=== PATIENT | male | born 1990 | race Caucasian/White ===

== ENCOUNTER 2017-01-07 19:05 | Emergency (ER) | payer BC ==
[~2017-01-07] VITALS: Ht 185.4 cm; Wt 89.3 kg
[~2017-01-07 19:05] MED LIST: ALBUAER19 INH
[2017-01-07 19:09] VITALS: Ht 185.4 cm; Wt 89.3 kg
--- NOTE | 2017-01-07 20:22 | DIAGNOSTIC IMAGING REPORT ---
SINGLE VIEW CHEST CLINICAL HISTORY: Atypical chest pain. FINDINGS: 2 AP, portable, upright chest radiographs are obtained. No prior studies are available for comparison at the time of dictation. The examination is degraded by portable technique and patient rotation. The cardiomediastinal silhouette is unremarkable. The lungs and pleural spaces are clear. No pneumothorax is seen. The bony thorax is grossly intact. IMPRESSION: No active disease in the chest. Electronically signed by: Jayden Banda M.D. 01/07/2017 8:20 PM Dictated Date/Time: 01/07/2017 8:20 PM
[2017-01-07] MEDS ORDERED: ATOR10TA88 PO (20:24)
[2017-01-07] MEDS ORDERED: LISI-729 PO (20:24)
[2017-01-07] MEDS ORDERED: ASPI81TA28 PO (20:25)
[2017-01-07 20:32] VITALS: O2SAT 99
--- NOTE | 2017-01-07 20:34 | EMERGENCY ROOM VISIT NOTE ---
History Report prepared by Carrie: Quin Ibarra Under the Supervision of: Dr. Gary Carbone M.D. First contact with patient: 19:56 Chief Complaint: CARDIAC ASSESSMENT Stated Complaint: FLUTTERING/FULLFEELING/PRESSUE IN CHEST,HEADACHE Nursing Triage Summary: Patient ambulatory to triage, states "I have been having a fluttering feeling in my chest. I was also having high blood pressure. I went to my PCP for it but it has gotten progressively worse. I was put on Lisinopril for the HTN and they discovered I have high cholesterol. I was put on atorvastatin about 5 days ago. I am supposed to see a key account director but they never contacted me. I called them tonight, telling them my symptoms, and they told me to come here. I have a pressure in the center of my chest. I now have a headache." History of Present Illness The patient is a 26 year old male who presents to the Emergency Room with complaints of worsening chest pain with onset today. He rates his discomfort as a 7/10. Per patient, five days ago, he started to have chest pain and a feeling of fullness in his chest. The patient's blood pressure was also elevated. As the patient's father first had a heart attack at 32, the patient became concerned about a cardiac source. For this, he saw his PCP. At his PCP, some lab work was done. The patient's cholesterol was high. He has been taking a statin and lisinopril for five days since seeing his PCP. Today, the patient has fluttering sensation in his chest, which has not gone away throughout the day. The patient tried calling the key account director his PCP referred him to. As they did not have his paperwork, he was then told to come to the ED. The patient still feels the palpitations. The patient notes that he smokes. He denies other drugs. The patient is trying to reduce his caffeine intake. Today, he had one cup of coffee. Additionally, the patient's father due to a heart attack at 72; he had an extensive cardiac history. The patient's great grandfather also had a heart attack in his 40s. Source of History: patient Onset: today Position: chest Symptom Intensity: 7/10 Quality: other (chest pain) Timing: worsening Note: His blood pressure has been elevated. Review of Systems See HPI for pertinent positives & negatives. A total of 10 systems reviewed and were otherwise negative. Past Medical & Surgical Medical Problems: (1) Laceration Family History Diabetes mellitus Heart disease Hypertension Social History Smoking Status: Current Every Day Smoker Alcohol Use: occasionally Marital Status: in relationship Occupation Status: employed Current/Historical Medications Scheduled Aspirin (Aspirin Ec), 81 MG PO DAILY Atorvastatin (Lipitor), 10 MG PO DAILY Lisinopril (Zestril), 5 MG PO DAILY Allergies Coded Allergies: No Known Allergies (Unverified , 03/11/12) Physical Exam Vital Signs Date Time Temp Pulse Resp B/P Pulse Ox O2 Delivery O2 Flow Rate FiO2 01/07/17 22:48 36.8 73 16 143/83 98 01/07/17 22:48 36.8 73 16 143/83 98 Room Air 01/07/17 20:39 73 01/07/17 20:36 75 16 143/83 98 Room Air 01/07/17 20:32 99 Room Air 01/07/17 20:32 99 Room Air 01/07/17 19:09 36.8 90 16 143/93 99 Room Air 01/07/17 19:09 99 Room Air Physical Exam GENERAL: Patient is a healthy-appearing well-nourished HEAD: Normocephalic atraumatic EYES: Ocular movements intact pupils equal and react to light OROPHARYNX mucous membranes are moist no exudates present no erythema or edema present NECK: Supple no nuchal rigidity CHEST: Good equal expansion LUNGS: Clear and equal to auscultation CARDIAC: Normal S1 and S2 ABDOMEN: Soft nontender no guarding BACK: No CVA tenderness EXTREMITIES: No pain upon palpation normal muscle strength in all groups no clubbing cyanosis or edema NEURO: Patient is following commands is answering questions appropriately. Alert and oriented x3 Cranial Nerves 2-12 grossly intact Medical Decision & Procedures ER Provider Diagnostic Interpretation: X-ray results as stated below per interpretation by me and the radiologist: SINGLE VIEW CHEST CLINICAL HISTORY: Atypical chest pain. FINDINGS: 2 AP, portable, upright chest radiographs are obtained. No prior studies are available for comparison at the time of dictation. The examination is degraded by portable technique and patient rotation. The cardiomediastinal silhouette is unremarkable. The lungs and pleural spaces are clear. No pneumothorax is seen. The bony thorax is grossly intact. IMPRESSION: No active disease in the chest. Electronically signed by: Jayden Vilbert, M.D. 01/07/2017 8:20 PM Dictated Date/Time: 01/07/2017 8:20 PM Laboratory Results 01/07/17 21:11 Red Blood Count 4.88, Mean Corpuscular Volume 90.8, Mean Corpuscular Hemoglobin 31.8, Mean Corpuscular Hemoglobin Concent 35.0, Mean Platelet Volume 9.3, Neutrophils (%) (Auto) 52.5, Lymphocytes (%) (Auto) 34.8, Monocytes (%) (Auto) 10.2, Eosinophils (%) (Auto) 2.1, Basophils (%) (Auto) 0.1, Neutrophils # (Auto ) 5.22, Lymphocytes # (Auto) 3.46, Monocytes # (Auto) 1.01, Eosinophils # (Auto ) 0.21, Basophils # (Auto) 0.01 01/07/17 21:11 Test 01/07/17 20:31 01/07/17 20:35 01/07/17 21:11 Bedside Hemoglobin 16.3 g/dl (14.0-18.0) Bedside Hematocrit 48 % (42-52) Bedside Sodium 137 mEq/L (135-144) Bedside Potassium 5.1 mEq/L (3.3-5.0) Bedside Chloride 104 mEq/L (101-112) Bedside Total CO2 24 mEq/l (24-31) Bedside Blood Urea Nitrogen 12 mg/dl (7-18) Bedside Creatinine 0.7 mg/dl (0.6-1.3) Bedside Glucose (other) 82 mg/dl (70-99) Bedside Ionized Calcium (Janice) 0.97 mmol/l (1.12-1.32) Bedside D-Dimer 88 ng/mlFEU (0-450) White Blood Count 9.94 K/uL (4.8-10.8) Red Blood Count 4.88 M/uL (4.7-6.1) Hemoglobin 15.5 g/dL (14.0-18.0) Hematocrit 44.3 % (42-52) Mean Corpuscular Volume 90.8 fL (80-100) Mean Corpuscular Hemoglobin 31.8 pg (25-34) Mean Corpuscular Hemoglobin Concent 35.0 g/dl (32-36) Platelet Count 286 K/uL (130-400) Mean Platelet Volume 9.3 fL (7.4-10.4) Neutrophils (%) (Auto) 52.5 % Lymphocytes (%) (Auto) 34.8 % Monocytes (%) (Auto) 10.2 % Eosinophils (%) (Auto) 2.1 % Basophils (%) (Auto) 0.1 % Neutrophils # (Auto) 5.22 K/uL (1.4-6.5) Lymphocytes # (Auto) 3.46 K/uL (1.2-3.4) Monocytes # (Auto) 1.01 K/uL (0.11-0.59) Eosinophils # (Auto) 0.21 K/uL (0-0.5) Basophils # (Auto) 0.01 K/uL (0-0.2) RDW Standard Deviation 42.9 fL (36.4-46.3) RDW Coefficient of Variation 12.9 % (11.5-14.5) Immature Granulocyte % (Auto) 0.3 % Immature Granulocyte # (Auto) 0.03 K/uL (0.00-0.02) Anion Gap 10.0 mmol/L (3-11) Est Creatinine Clear Calc Drug Dose 172.6 ml/min Estimated GFR () 147.1 Estimated GFR (Non- 126.9 BUN/Creatinine Ratio 13.6 (10-20) Calcium Level 8.8 mg/dl (8.5-10.1) Total Bilirubin 0.4 mg/dl (0.2-1) Direct Bilirubin < 0.1 mg/dl (0-0.2) Aspartate Amino Transf (AST/SGOT) 20 U/L (15-37) Alanine Aminotransferase (ALT/SGPT) 45 U/L (12-78) Alkaline Phosphatase 56 U/L (45-117) Total Creatine Kinase 94 U/L (39-308) Creatine Kinase MB 0.7 ng/ml (0.5-3.6) Creatine Kinase MB Ratio 0.7 (0-3.0) Troponin I < 0.015 ng/ml (0-0.045) Total Protein 7.1 gm/dl (6.4-8.2) Albumin 4.0 gm/dl (3.4-5.0) Lipase 154 U/L (73-393) Labs reviewed by ED physician. Medications Administered Medications (Trade) Dose Ordered Sig/Jared Route Start Time Stop Time Status Last Admin Dose Admin Sodium Chloride (Nss 1000ml) 1,000 ml @ 999 mls/hr Q1H1M STAT IV 01/07/17 20:39 01/07/17 21:39 DC 01/07/17 21:03 999 MLS/HR Acetaminophen (Tylenol Tab) 1,000 mg NOW STAT PO 01/07/17 21:32 01/07/17 21:33 DC 01/07/17 22:48 1,000 MG ECG Indication: chest pain Rate (beats per minute): 72 Rhythm: normal sinus Findings: no acute ischemic change, no ectopy ED Course 2001: Past medical records reviewed. The patient was evaluated in room C9. A complete history and physical examination was performed. 2035: I reevaluated the patient and updated him on the results of his imaging. 2038: Sodium Chloride 1000 ml @ 999 mls/hr IV 2131: Tylenol Tab 1000 mg PO 2248: Upon reexamination the patient is doing well. I discussed results and treatment plan with the patient. He verbalizes agreement and understanding. The patient is ready for discharge. Medical Decision The patient is a 26 year old male who presents to the ED with complaints of chest pain. Differential diagnosis: Etiologies such as cardiac ischemia, aortic dissection, pulmonary embolism, pneumonia, pneumothorax, musculoskeletal, infections, pericarditis, myocarditis , esophageal rupture, gastrointestinal, as well as others were entertained. This is a 26-year-old male who presents emergency department complaining of palpitations. On examination of the patient's monitor strip, he is throwing PVCs. He is not having any chest pain or shortness of breath. He has normal joints normal CK-MB and troponin normal EKG. The patient was given normal saline bolus. I do believe he as well as to be discharged home for follow-up with cardiology. The patient is going to follow-up with Dr. Isac sierra and Maddy. Patient was in agreement with the treatment plan. Impression Primary Impression: Palpitations Additional Impression: PVC (premature ventricular contraction) Scribe Attestation The scribe's documentation has been prepared under my direction and personally reviewed by me in its entirety. I confirm that the note above accurately reflects all work, treatment, procedures, and medical decision making performed by me. Departure Information Dispostion Home / Self-Care Referrals Rafael Quinteros D.O. (PCP) Forms IMPORTANT VISIT INFORMATION Patient Instructions ED Palpitations, My [facility], Premature Ventricular Contractions Additional Instructions Follow up with Dr Capone/ Federico's office You have been examined and treated today on an emergency basis only. This is not a substitute for, or an effort to provide, complete comprehensive medical care. It is impossible to recognize and treat all injuries or illnesses in a single emergency department visit. It is therefore important that you follow up closely with Dr Quinteros. Call as soon as possible for an appointment. Thank you for your time and consideration. I look forward to speaking with you again soon. Please don't hesitate to call us if you have any questions. Problem Qualifiers
[2017-01-07] MEDS ORDERED: SODIUM CHLORIDE 0.9% 1000ML 1,000 ML IV STA (20:39)
[2017-01-07 21:32] LABS: BASO % 0.1 %; BASO ABS # 0.01 K/uL (0-0.2); COMPLETE YES; EOS % 2.1 %; HEMATOCRIT 44.3 % (42-52); IG% 0.3 %; LYMPH % 34.8 %; LYMPH ABS # 3.46 K/uL (1.2-3.4); MEAN CELL VOLUME 90.8 fL (80-100); MEAN CORPUSCULAR HEMOGLOBIN 31.8 pg (25-34); MEAN PLATELET VOLUME 9.3 fL (7.4-10.4); MONO % 10.2 %; NEUT % 52.5 %; PLATELET COUNT 286 K/uL (130-400); RED BLOOD COUNT 4.88 M/uL (4.7-6.1); WHITE BLOOD COUNT 9.94 K/uL (4.8-10.8)
[2017-01-07] MEDS ORDERED: ACETAMINOPHEN 500 MG TAB PO STA (21:32)
[2017-01-07 21:49] LABS: ALT/SGPT 45 U/L (12-78); BLOOD UREA NITROGEN 10 mg/dl (7-18); BUN/CREATININE RATIO 13.6 (10-20); CALCIUM 8.8 mg/dl (8.5-10.1); CARBON DIOXIDE 27 mmol/L (21-32); CHLORIDE 105 mmol/L (98-107); CREATININE 0.72 mg/dl (0.60-1.40); GLUCOSE 82 mg/dl (70-99); POTASSIUM 4.1 mmol/L (3.5-5.1); SODIUM 142 mmol/L (136-145)
[2017-01-07 21:54] LABS: ALKALINE PHOSPHATASE 56 U/L (45-117); AST/SGOT 20 U/L (15-37); CKMB/CK RATIO 0.7 (0-3.0)
[2017-01-07 22:48] VITALS: BP 143/83; PULSE 73; TEMP 36.8; O2SAT 98
[2017-01-07 22:51] LABS: ISTAT CREATININE 0.7 mg/dl (0.6-1.3); ISTAT HEMOGLOBIN 16.3 g/dl (14.0-18.0); ISTAT IONIZED CALCIUM 0.97 mmol/l (1.12-1.32)
== END 2017-01-07 22:49 | disposition home or self-care (01) ==
LOC: C.EDB 19:06 → C.EDC 22:49
DX: I49.3 Ventricular premature depolarization (principal); R00.2 Palpitations; R03.0 Elevated blood-pressure reading, without diagnosis of hypertension; E78.00 Pure hypercholesterolemia, unspecified; F17.200 Nicotine dependence, unspecified, uncomplicated; Z79.82 Long term (current) use of aspirin; Z79.899 Other long term (current) drug therapy

== ENCOUNTER → 2017-04-12 | Outpatient (CLI) | payer BC ==
[~2017-04-12] MED LIST changes: -ALBUAER19 INH; +ASPI81TA28 PO; +ATOR10TA82 PO; +LISI-729 PO
[2017-04-12 09:57] LABS: DAYS OF ABSTINENCE 3; METHOD OF COLLECTION MASTURBATION; SEMEN COLOR GRAY OR GRAY-WHITE (GRY/GRYWHTE); SEMEN TIME OF COLLECTION 850; SEMEN VOLUME 1.6 ML (>1.5); SPERM VIABILITY STAIN NOT INDICATED % (>58%); TYPE OF SPECIMEN CONTAINER STERILE CUP
== END | disposition home or self-care (01) ==
LOC: C.LAB 09:21
PROVIDERS: ATTEND Obstetrics & Gynecology
DX: Z31.41 Encounter for fertility testing (principal)

== ENCOUNTER 2022-09-17 12:16 | Inpatient (IN) ==
[2022-09-17 12:46] LABS: Appearance Urine Clear (Clear); Bilirubin Urine Negative (Negative); Blood Urine Negative (Negative); Color Urine Yellow; Glucose Urine UA Negative (Negative); Ketones Urine Negative (Negative); Leukocyte Esterase Urine Negative (Negative); Nitrite Urine Negative (Negative); Protein Urine Negative (Negative); Urobilinogen Urine Negative (Negative); pH Urine 7.5 (4.5-7.5)
[2022-09-17 13:26] LABS: Basophils # (auto) 0.03 K/uL (0-0.2); Basophils % (auto) 0.3 %; Eosinophils # (auto) 0.04 K/uL (0-0.50); Eosinophils % (auto) 0.4 %; Hematocrit (blood only) 46.5 % (40.1-51.0); Hemoglobin 16.3 g/dl (14.0-18.0); Immature Granulocytes # (auto) 0.04 K/uL (0.00-0.02); Immature Granulocytes % (auto) 0.4 %; Lymphocytes # (auto) 1.63 K/uL (1.2-3.4); Lymphocytes % (auto) 16.6 %; Mean Corpuscular Hemoglobin 30.4 pg (25.0-34.0); Mean Corpuscular Hgb Conc 35.1 g/dL (32.0-36.0); Mean Corpuscular Volume 86.8 fL (80.0-100.0); Mean Platelet Volume 9.3 fL (9.4-12.4); Monocytes # (auto) 0.92 K/uL (0.24-0.82); Monocytes % (auto) 9.3 %; Neutrophils # (auto) 7.18 K/uL (1.4-6.5); Platelet Count 293 K/uL (130-400); RDW Coefficient of Variation 12.1 % (11.5-14.5); RDW Standard Deviation 38.5 fL (36.4-46.3); Red Blood Count 5.36 M/uL (4.63-6.08); White Blood Count 9.84 K/ul (4.8-10.8)
[2022-09-17 14:09] LABS: Albumin Globulin Ratio 1.6 (0.9-2); Albumin Level 4.9 gm/dl (3.4-5.0); BUN Creatinine Ratio 17.8 (10-20); Bilirubin,Total 1.1 mg/dl (0.2-1.0); Calcium 9.6 mg/dl (8.5-10.1); Creatinine Clr Calc Pharmacy 161.1 ml/min; Est GFR (African American) 140.3 ml/min; Potassium 3.7 mmol/L (3.5-5.1); Total Protein 7.9 gm/dl (6.0-8.3)
[2022-09-17] MEDS ORDERED: SODIUM CHLORIDE 0.9% 1000ML 1,000 ML IV ONE (15:03)
--- NOTE | 2022-09-17 15:04 | Emergency Department Note ---
Impression & Plan Acute appendicitis ADMIT ED Provider Note HPI: The patient is a 32-year-old male who presents emergency department chief complaint of right lower quadrant pain that is been ongoing for about the past day. Patient states that he woke up yesterday morning with sensation of pain in his right lower quadrant. States that he had some nausea throughout the day but denies any vomiting. Patient states his pain has been relatively persistent into today and therefore he presented to the emergency department for further evaluation. On arrival the patient is hemodynamically stable, he is afebrile on my initial assessment ROS: -GI: Right lower quadrant pain, nausea *10 point review systems was conducted and is otherwise negative unless stated above *Outpatient medications and allergy history reviewed PE: General: Alert HEENT: Normocephalic, trachea midline Eyes: Extraocular eye movement is intact, no scleral erythema Pulmonary: Clear to auscultation bilaterally, no wheezing Cardio: Regular rate and rhythm GI: Abdomen is soft, there is tenderness in the right lower quadrant to palpation without guarding or rigidity : No suprapubic tenderness MSK: No evidence of trauma or malformation of the extremities, no edema Skin: No evidence of rash Neuro: Alert, no focal deficits Psychiatric: 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 Lab work is reassuring without critical electrolyte abnormalities, no leukocytosis, hemoglobin is stable. Patient is hemodynamically stable here in the ED. CT imaging of the abdomen pelvis was obtained and does show evidence of acute appendicitis without perforation. General surgery was consulted and patient was evaluated at the bedside by Dr. Markham. Plan is for operative intervention later this evening, patient was placed for admission to the general surgery service for definitive care. Diagnosis: 1. Acute appendicitis 2. Acute abdominal pain, right-sided, non-intractable Disposition: ADMIT Jon Pichardo DO Emergency Medicine Past Med/Surg History Medical History (Updated 09/17/22 @ 16:32 by Jon Pichardo DO) HTN (hypertension) PVC (premature ventricular contraction) Surgical History No pertinent past surgical history Social History Smoking Status: Never smoker Preferred Language: Bulgarian Feels Safe at Home: Yes Allergies Allergies Allergy/AdvReac Type Severity Reaction Status Date / Time No Known Allergies Allergy Verified 03/08/19 00:18 Home Meds Home Medications Medication Instructions Recorded Confirmed multivitamin 1 tab PO DAILY 03/05/19 03/08/19 Results & Data (ED) Vital Signs Vital Signs - 24 hr 09/17/22 12:23 Temperature 36.9 C Temperature Source Temporal Artery Scan Pulse Rate 82 Respiratory Rate 20 Respiratory Effort / Characteristics Non-Labored Respiratory Depth Normal Blood Pressure 137/91 Blood Pressure Mean 106 Pulse Oximetry 96 Oxygen Delivery Method Room Air Sepsis Recent Fever Within 48 Hours No Sepsis New/Unexplained Change in Mental Status N/A Sepsis Action Taken by Nursing No Action Required Laboratory Data Result diagrams: 09/17/22 13:05 09/17/22 13:05 Lab Results 09/17/22 09/17/22 09/17/22 Range/Units 12:26 13:05 13:05 WBC 9.84 (4.8-10.8) K/ul RBC 5.36 (4.63-6.08) M/uL Hgb 16.3 (14.0-18.0) g/dl Hct 46.5 (40.1-51.0) % MCV 86.8 (80.0-100.0) fL MCH 30.4 (25.0-34.0) pg MCHC 35.1 (32.0-36.0) g/dL RDW Std Deviation 38.5 (36.4-46.3) fL RDW Coeff of Maycol 12.1 (11.5-14.5) % Plt Count 293 (130-400) K/uL MPV 9.3 L (9.4-12.4) fL Immature Gran % (Auto) 0.4 % Neut % (Auto) 73.0 % Lymph % (Auto) 16.6 % [place] % (Auto) 9.3 % Eos % (Auto) 0.4 % Baso % (Auto) 0.3 % Neut # (Auto) 7.18 H (1.4-6.5) K/uL Lymph # (Auto) 1.63 (1.2-3.4) K/uL [place] # (Auto) 0.92 H (0.24-0.82) K/uL Eos # (Auto) 0.04 (0-0.50) K/uL Baso # (Auto) 0.03 (0-0.2) K/uL Immature Gran # (Auto) 0.04 H (0.00-0.02) K/uL Sodium 139 (136-145) mmol/L Potassium 3.7 (3.5-5.1) mmol/L Chloride 103 (98-107) mmol/L Carbon Dioxide 29 (21-32) mmol/L Anion Gap 7 (3-11) BUN 13 (6-23) mg/dl Creatinine 0.73 (0.6-1.4) mg/dl Est Cr Clr Drug Dosing 161.1 ml/min Est GFR ( Amer) 140.3 ml/min Est GFR (Non-Af Amer) 121.0 ml/min BUN/Creatinine Ratio 17.8 (10-20) Glucose 98 (70-99(Fasting)) mg/dl Calcium 9.6 (8.5-10.1) mg/dl Total Bilirubin 1.1 H (0.2-1.0) mg/dl AST 18 (13-39) U/L ALT 23 (7-52) U/L Alkaline Phosphatase 68 (34-104) U/L Total Protein 7.9 (6.0-8.3) gm/dl Albumin 4.9 (3.4-5.0) gm/dl Globulin 3.0 (2.5-4.0) gm/dl Albumin/Globulin Ratio 1.6 (0.9-2) Lipase 20 (11-82) U/L Urine Color Yellow Urine Appearance Clear (Clear) Urine pH 7.5 (4.5-7.5) Ur Specific [place] 1.020 (1.000-1.030) Urine Protein Negative (Negative) Urine Glucose (UA) Negative (Negative) Urine Ketones Negative (Negative) Urine Blood Negative (Negative) Urine Nitrite Negative (Negative) Urine Bilirubin Negative (Negative) Urine Urobilinogen Negative (Negative) Ur Leukocyte Esterase Negative (Negative) Administered Medications Discontinued Medications Sodium Chloride (Nss 1000ml) 1,000 mls @ 999 mls/hr IV .Q1H1M ONE Stop: 09/17/22 16:03 Last Admin: 09/17/22 15:17 Dose: 999 mls/hr Documented By: ZOE Ioversol (Optiray 350 100ml) 88 ml IV ONCE ONE Stop: 09/17/22 15:29 Last Admin: 09/17/22 15:28 Dose: 88 ml Documented By: ASAF Imaging Data Radiologist's Impression: Abdomen/Pelvis CT 09/17/22 12:41 CT SCAN OF THE ABDOMEN AND PELVIS WITH IV CONTRAST CLINICAL HISTORY: Right lower quadrant abdominal pain. COMPARISON STUDY: No priors. TECHNIQUE: Following the IV administration of 88 cc of Optiray 350, CT scan of the abdomen and pelvis is performed from the lung bases to the proximal femora. Images are reviewed in the axial, sagittal, and coronal planes. IV contrast was administered without complication. A dose lowering technique was utilized adhering to the principles of ALARA. CT DOSE: 408.64 mGy.cm FINDINGS: Lung bases: The heart is normal in size and without pericardial effusion. The lung bases are clear. Liver: The contrast-enhanced liver is normal in size, contour, and attenuation. There is no intrahepatic biliary ductal dilatation. The hepatic veins and portal veins are patent. Gallbladder: Unremarkable. Spleen: Normal in size and attenuation. Pancreas: Unremarkable. Adrenal glands: Unremarkable. Kidneys: The contrast enhanced kidneys are normal in size and without hydronephrosis. The kidneys enhance symmetrically. Abdominal vasculature: The abdominal aorta is normal in course and caliber. Bowel: There is moderate colonic fecal retention. No bowel obstruction is seen. The appendix is dilated and fluid-filled, measuring up to 10 mm in diameter. The appendiceal wall is thickened and hyperemic, and there is surrounding inf lammation and fluid. The appearance is consistent with acute appendicitis. No organized fluid collection is seen to suggest abscess. Peritoneum: There is no intraperitoneal free air or abdominal ascites. There is a fat-containing umbilical hernia. Lymphadenopathy: None. Pelvic viscera: The bladder is decompressed and not well assessed. The prostate and seminal vesicles are normal as visualized. Skeletal structures: No lytic or blastic lesions are seen. IMPRESSION: 1. Acute appendicitis. 2. There is no evidence of abscess or perforation. ACT 112: Negative or not required by law. Electronically signed by: Jayden Banda M.D. 09/17/2022 3:59 PM Discharge Plan Visit Data Chief Complaint: Abdominal Pain Stated Complaint: REF BY , ABDOMINAL PAIN ED Provider: Jon Pichardo Discharge Problem: Acute appendicitis Patient Disposition: Admitted As Inpatient Forms Stand Alone Forms: [facility] Prescriptions Prescriptions: No Action multivitamin Tablet 1 tab PO DAILY Referrals Referrals: Solitario Damon DO [Primary Care Provider] -
[2022-09-17] MEDS ORDERED: OPTIRAY 350 100ml IV ONE (15:28)
--- NOTE | 2022-09-17 16:00 | CT Scan Report ---
CT SCAN OF THE ABDOMEN AND PELVIS WITH IV CONTRAST CLINICAL HISTORY: Right lower quadrant abdominal pain. COMPARISON STUDY: No priors. TECHNIQUE: Following the IV administration of 88 cc of Optiray 350, CT scan of the abdomen and pelvi s is performed from the lung bases to the proximal femora. Images are reviewed in the axial, sagittal , and coronal planes. IV contrast was administered without complication. A dose lowering technique wa s utilized adhering to the principles of ALARA. CT DOSE: 408.64 mGy.cm FINDINGS: Lung bases: The heart is normal in size and without pericardial effusion. The lung bases are clear. Liver: The contrast-enhanced liver is normal in size, contour, and attenuation. There is no intrahepa tic biliary ductal dilatation. The hepatic veins and portal veins are patent. Gallbladder: Unremarkable. Spleen: Normal in size and attenuation. Pancreas: Unremarkable. Adrenal glands: Unremarkable. Kidneys: The contrast enhanced kidneys are normal in size and without hydronephrosis. The kidneys enh ance symmetrically. Abdominal vasculature: The abdominal aorta is normal in course and caliber. Bowel: There is moderate colonic fecal retention. No bowel obstruction is seen. The appendix is dila morena and fluid-filled, measuring up to 10 mm in diameter. The appendiceal wall is thickened and hypere pilar, and there is surrounding inflammation and fluid. The appearance is consistent with acute appendi citis. No organized fluid collection is seen to suggest abscess. Peritoneum: There is no intraperitoneal free air or abdominal ascites. There is a fat-containing umbi lical hernia. Lymphadenopathy: None. Pelvic viscera: The bladder is decompressed and not well assessed. The prostate and seminal vesicles are normal as visualized. Skeletal structures: No lytic or blastic lesions are seen. IMPRESSION: 1. Acute appendicitis. 2. There is no evidence of abscess or perforation. ACT 112: Negative or not required by law. Electronically signed by: Jayden Banda M.D. 09/17/2022 3:59 PM
[2022-09-17] MEDS ORDERED: cefOXitin 2,000 MG/60 ML BAG IV STA (16:20)
--- NOTE | 2022-09-17 16:20 | History & Physical Report ---
Date of Service September 17, 2022 Assessment & Plan (1) Acute appendicitis: Plan: This is a 32y M with no significant PMH who presents to the [facility] ED on 09/17/22 with complaints of right lower quadrant abdominal pain that started yesterday morning. Workup with a CT a/p was obtained that revealed findings consistent with acute appendicitis, no perforation/abscess. WBC 9.8. Patient with stable vital signs, afebrile. On exam patient's abdomen is soft, non distended, with tenderness to palpation in the RLQ. Based on history/exam and imaging findings consistent with acute appendicitis our recommendations are to proceed with surgical intervention for appendectomy. Will keep NPO with IVF and give pre-op abx. Patient booked for laparoscopic appendectomy. Likely spend overnight with us for observation. Dr. Markham has obtained consent. Patient is agreeable with the plan. History of Present Illness Primary Care Provider: Solitario Damon DO This is a 32y M with no significant PMH who presents to the [facility] ED on 09/17/22 with complaints of right lower abdominal pain. Patient states the pain started yesterday morning. It did get slightly better, but then returned this AM and has since gotten worse. He reports some dry-heaves, but no emesis. In the ER a CT a/p was obtained that revealed findings consistent with acute appendicitis, no perforation/abscess. He denies any fevers/chills or recent change in bowel habits. No prior abdominal surgical history. Allergies Allergy/AdvReac Type Severity Reaction Status Date / Time No Known Allergies Allergy Verified 03/08/19 00:18 Home Medications Medication Instructions Recorded Confirmed Type multivitamin 1 tab PO DAILY 03/05/19 03/08/19 History Past Med/Surg History Medical History (Updated 09/17/22 @ 16:32 by Jon Pichardo DO) HTN (hypertension) PVC (premature ventricular contraction) Surgical History No pertinent past surgical history Social History Smoking Status: Never smoker Preferred Language: Israeli Feels Safe at Home: Yes Review of Systems Constitutional: no fever and no chills Respiratory: no dyspnea Cardiovascular: no chest pain Gastrointestinal: + abdominal pain, + bloating and + nausea (dry-heaves); no vomiting Physical Exam Physical Exam: awake/alert Constitutional: well developed, well nourished and healthy appearing; no acute distress Respiratory: normal respiratory effort Gastrointestinal (Abdomen): Inspection/Auscultation: abdomen not distended Percussion/Palpation: + abdomen tender (ttp in the RLQ) and abdomen soft Results & Data Results & Data ([facility]) Vital Signs (Past 12 Hours) Vital Signs Temp Pulse Resp BP Pulse Ox O2 Del Method 09/17/22 12:23 36.9 C 82 20 137/91 96 Room Air Diagnostic Findings CT SCAN OF THE ABDOMEN AND PELVIS WITH IV CONTRAST CLINICAL HISTORY: Right lower quadrant abdominal pain. COMPARISON STUDY: No priors. TECHNIQUE: Following the IV administration of 88 cc of Optiray 350, CT scan of the abdomen and pelvis is performed from the lung bases to the proximal femora. Images are reviewed in the axial, sagittal, and coronal planes. IV contrast was administered without complication. A dose lowering technique was utilized adhering to the principles of ALARA. CT DOSE: 408.64 mGy.cm FINDINGS: Lung bases: The heart is normal in size and without pericardial effusion. The lung bases are clear. Liver: The contrast-enhanced liver is normal in size, contour, and attenuation. There is no intrahepatic biliary ductal dilatation. The hepatic veins and portal veins are patent. Gallbladder: Unremarkable. Spleen: Normal in size and attenuation. Pancreas: Unremarkable. Adrenal glands: Unremarkable. Kidneys: The contrast enhanced kidneys are normal in size and without hydronephrosis. The kidneys enhance symmetrically. Abdominal vasculature: The abdominal aorta is normal in course and caliber. Bowel: There is moderate colonic fecal retention. No bowel obstruction is seen. The appendix is dilated and fluid-filled, measuring up to 10 mm in diameter. The appendiceal wall is thickened and hyperemic, and there is surrounding inflammation and fluid. The appearance is consistent with acute appendicitis. No organized fluid collection is seen to suggest abscess. Peritoneum: There is no intraperitoneal free air or abdominal ascites. There is a fat-containing umbilical hernia. Lymphadenopathy: None. Pelvic viscera: The bladder is decompressed and not well assessed. The prostate and seminal vesicles are normal as visualized. Skeletal structures: No lytic or blastic lesions are seen. IMPRESSION: 1. Acute appendicitis. 2. There is no evidence of abscess or perforation. ACT 112: Negative or not required by law. Electronically signed by: Jayden Banda M.D. 09/17/2022 3:59 PM Supervising Physician Co-Signing Physician Notes Dr. Markhampatient seen in the emergency room with acute abdominal pain findings consistent with acute appendicitis I discussed with him laparoscopic appendectomy possible open appendectomy He does wish to proceed PG Care Time/CCT Total # of Minutes Spent Total Time Spent with Patient: Total time spent is greater than 50% in coordination of care (as documented) at patient's floor/unit and/or counseling patient: Coding Level of Care Code INT OBSERVATION CARE 48M LVL 2 Diagnoses Acute appendicitis K35.80
[2022-09-17] MEDS ORDERED: BUPIVACAINE 0.5 % 5 MG/1 ML MPF 30ML VIAL ONE (16:44)
[2022-09-17] MEDS ORDERED: MIDAZOLAM HCL 1 MG/ML 2ML VIAL ONE (16:46)
[2022-09-17] MEDS ORDERED: LIDOCAINE 2% MPF LOCAL 5 ML VIAL INFIL ONE (16:46)
[2022-09-17] MEDS ORDERED: ONDANSETRON INJ 2 MG/ML 2 ML VIAL ONE (16:46)
[2022-09-17] MEDS ORDERED: ROCURONIUM BROMIDE 10 MG/ML 5 ML VIAL IV ONE ×5 (16:46→16:47)
[2022-09-17] MEDS ORDERED: PROPOFOL IV EMULSION 10 MG/ML 20 ML VIAL IV ONE (16:46)
[2022-09-17] MEDS ORDERED: fentaNYL citrate 100 MCG/2 ML VIAL ONE (16:46)
[2022-09-17] MEDS ORDERED: DEXAMETHASONE SOD INJ 4 MG/ML VIAL ONE ×2 (16:46→17:38)
[2022-09-17] MEDS ORDERED: SUGAMMADEX SODIUM 200 MG/2 ML VIAL IV ONE (16:56)
[2022-09-17] MEDS ORDERED: PHENYLEPHRINE 100MCG/ML 5ML SYR IV PRN ×2 (16:57→17:48)
[2022-09-17] MEDS ORDERED: HYDROmorphone INJ 1 MG/ML SYRINGE IV PRN ×2 (16:57→17:48)
[2022-09-17] MEDS ORDERED: ONDANSETRON INJ 2 MG/ML 2 ML VIAL IV PRN ×3 (16:57→19:57)
[2022-09-17] MEDS ORDERED: MEPERIDINE HCL 25 MG/ML CARP/VIAL IV PRN ×2 (16:57→17:48)
[2022-09-17] MEDS ORDERED: ePHEDrine sulfate 50 MG/ML AMP IV PRN ×2 (16:57→17:48)
[2022-09-17] MEDS ORDERED: fentaNYL citrate 100 MCG/2 ML VIAL IV PRN (16:57)
[2022-09-17] MEDS ORDERED: ATROPINE SULFATE 0.1 MG/ML 10ML SYR IV PRN ×2 (16:57→17:49)
[2022-09-17] MEDS ORDERED: LABETALOL HCL IV 5 MG/ML 20ML IV PRN ×2 (16:57→17:48)
--- NOTE | 2022-09-17 17:00 | Anesthesiology Consultation ---
Date of Service September 17, 2022 Assessment & Plan (1) Encounter for pre-operative examination: Chart Review Chart Review: Acceptable Risk for Surgery and Patient NOT seen in Pre Admission Testing Consults Requested none History Surgery Operation Date: 09/17/22 15:45 Proposed Procedures p Laparoscopic Appendectomy - Reji Markham MD, FACS Height/Weight Height: 6 ft 1 in Weight: 92.6 kg Allergies Allergy/AdvReac Type Severity Reaction Status Date / Time No Known Allergies Allergy Verified 03/08/19 00:18 Medications Home Medications Medication Instructions Recorded Confirmed Last Taken multivitamin 1 tab PO DAILY 03/05/19 03/08/19 03/06/19 Past Medical History Medical History (Updated 09/17/22 @ 17:00 by Sukumar Spicer MD) HTN (hypertension) PVC (premature ventricular contraction) Past Surgical History Surgical History No pertinent past surgical history Social History Smoking Status: Never smoker Physical Exam Vital Signs Last Vital Signs Temp 36.9 C 09/17/22 12:23 Pulse 82 09/17/22 12:23 Resp 20 09/17/22 12:23 BP 137/91 09/17/22 12:23 Pulse Ox 96 09/17/22 12:23 O2 Del Method 09/17/22 12:23 Testing Laboratory Results 09/17/22 13:05 09/17/22 13:05 Urine Color Yellow 09/17/22 12:26 Urine Appearance Clear (Clear) 09/17/22 12:26 Urine pH 7.5 (4.5-7.5) 09/17/22 12:26 Ur Specific [place] 1.020 (1.000-1.030) 09/17/22 12:26 Urine Protein Negative (Negative) 09/17/22 12:26 Urine Glucose (UA) Negative (Negative) 09/17/22 12:26 Urine Ketones Negative (Negative) 09/17/22 12:26 Urine Nitrite Negative (Negative) 09/17/22 12:26 Ur Leukocyte Esterase Negative (Negative) 09/17/22 12:[address] SCAN OF THE ABDOMEN AND PELVIS WITH IV CONTRAST CLINICAL HISTORY: Right lower quadrant abdominal pain. COMPARISON STUDY: No priors. TECHNIQUE: Following the IV administration of 88 cc of Optiray 350, CT scan of the abdomen and pelvis is performed from the lung bases to the proximal femora. Images are reviewed in the axial, sagittal, and coronal planes. IV contrast was administered without complication. A dose lowering technique was utilized adh ering to the principles of ALARA. CT DOSE: 408.64 mGy.cm FINDINGS: Lung bases: The heart is normal in size and without pericardial effusion. The lung bases are clear. Liver: The contrast-enhanced liver is normal in size, contour, and attenuation. There is no intrahepatic biliary ductal dilatation. The hepatic veins and portal veins are patent. Gallbladder: Unremarkable. Spleen: Normal in size and attenuation. Pancreas: Unremarkable. Adrenal glands: Unremarkable. Kidneys: The contrast enhanced kidneys are normal in size and without hydronephrosis. The kidneys enhance symmetrically. Abdominal vasculature: The abdominal aorta is normal in course and caliber. Bowel: There is moderate colonic fecal retention. No bowel obstruction is seen. The appendix is dilated and fluid-filled, measuring up to 10 mm in diameter. The appendiceal wall is thickened and hyperemic, and there is surrounding inflammation and fluid. The appearance is consistent with acute appendicitis. No organized fluid collection is seen to suggest abscess. Peritoneum: There is no intraperitoneal free air or abdominal ascites. There is a fat-containing umbilical hernia. Lymphadenopathy: None. Pelvic viscera: The bladder is decompressed and not well assessed. The prostate and seminal vesicles are normal as visualized. Skeletal structures: No lytic or blastic lesions are seen. IMPRESSION: 1. Acute appendicitis. 2. There is no evidence of abscess or perforation. ACT 112: Negative or not required by law. Electronically signed by: Jayden Banda M.D. 09/17/2022 3:59 PM Dictated:09/17/22 1555 Transcribed: 09/17/22 1555
[2022-09-17] MEDS ORDERED: KETOROLAC 30 MG/ML VIAL ONE (17:09)
[2022-09-17] MEDS ORDERED: HYDROmorphone INJ 2 MG/ML SYR/VIAL ONE (17:40)
[2022-09-17] MEDS ORDERED: NEOSTIGMINE METHYLSULFATE 1 MG/ML 10ML VIAL ONE (17:57)
[2022-09-17] MEDS ORDERED: GLYCOPYRROLATE 0.2 MG/ML VIAL ONE (17:57)
--- NOTE | 2022-09-17 18:08 | Post Operative Brief Note ---
PG Immediate Post Op with CF Date of Surgery September 17, 2022 Pre & Post Diagnosis Operation Date: 09/17/22 15:45 Pre-Op Diagnosis: Appendicitis Umbilical hernia Post-Op Diagnosis: Appendicitis Umbilical hernia I identified the patient and participated in the time-out.: Yes Procedure Operation Date: 09/17/22 15:45 Actual Procedures p Laparoscopic Appendectomy, Laparoscopic Umbilical Hernia Repair(Not Applicable) - Rjei Markham MD, FACS Surgeon Reji Markham MD, FACS Traveling Construction Superintendent Nurses Estimated Blood Loss 5 Findings Consistent with Post-Op Diagnosis Patient had a 1 cm umbilical hernia and acute appendicitis with no abscess Specimens Specimen Description: A. hernia contents B. appendix
[2022-09-17] MEDS ORDERED: ACETAMINOPHEN 1,000 MG/100 ML VIAL IV ONE (18:09)
[2022-09-17] MEDS: fentaNYL citrate 100 MCG/2 ML VIAL IV PRN ×5 (18:30→19:02)
--- NOTE | 2022-09-17 18:50 | Anesthesiology Progress Note ---
Date of Service September 17, 2022 Anesthesia Post Procedure Vital Signs Vital Signs: Temp Pulse Pulse Pulse Resp BP BP 09/17/22 18:16 36.4 C L 96 H 16 144/86 H 09/17/22 17:08 37 C 76 18 156/91 H 09/17/22 12:23 36.9 C 82 20 137/91 Pulse Ox O2 Del Method 09/17/22 18:16 98 Room Air 09/17/22 17:08 98 Room Air 09/17/22 12:23 96 Room Air Transfer of Care Handoff Completed per policy Notes Mental Status: alert / awake / arousable Patient Amnestic to Procedure: Yes Nausea / Vomiting: adequately controlled Pain: adequately controlled Airway Patency, RR, SpO2: stable & adequate BP & HR: stable & adequate Hydration State: stable & adequate Anesthetic Complications: no major complications apparent and Pt Satisfied with anesthetic care
[2022-09-17] MEDS ORDERED: oxyCODONE HCL IR 5 MG TAB (IMMEDIATE RELEASE) PO PRN (19:57)
[2022-09-17] MEDS ORDERED: LACTATED RINGER'S 1,000 ML IV SCH (19:57)
[2022-09-17] MEDS ORDERED: HYDROmorphone INJ 0.5 MG/0.5 ML SYR IV PRN ×2 (19:57)
[2022-09-17] MEDS: oxyCODONE HCL IR 5 MG TAB (IMMEDIATE RELEASE) PO PRN (20:46)
[2022-09-17] MEDS: DOCUSATE SODIUM/SENNA 50/8.6MG TAB PO SCH (20:46)
--- NOTE | 2022-09-17 23:24 | Operative Report (OR) ---
NAME OF OPERATION: Laparoscopic appendectomy with umbilical hernia repair. PREOPERATIVE DIAGNOSES: Acute appendicitis and umbilical hernia. POSTOPERATIVE DIAGNOSES: Acute appendicitis and umbilical hernia. STAFF SURGEON: Reji Markham MD. DELIVERY ROOM CLERK: Nurses. ANESTHESIA: General. DESCRIPTION OF PROCEDURE: The patient was brought in the operating room and placed on the operating table in supine position. His abdomen was prepped and draped in the usual fashion. A 0.5% plain Mar paul was used to anesthetize all incisions. An incision was made just above the umbilicus, carrying dissection down, identifying a hernia sac, which was opened. Adipose tissue was debrided. The sathya ent had a 1 cm hernia defect a Veress needle placed through this area and then pneumoperitoneum produ windy. A 5 mm port placed in this level. Then, the camera passed. Under visualization, a second 5 mm p ort placed in the suprapubic area and a 12 mm port in the left lower quadrant. Cecum was reflected. The appendix was identified. The patient did have acute appendicitis, but no abscess. Base of the a ppendix was transected using Endo-OPAL stapler. Then, the mesoappendix transected using a second load of the Endo-OPAL stapler. We did use a 45 mm brown load twice. After appropriate irrigation and hem ostasis, the appendix was placed in an Endobag and the Endobag was removed through the 12 mm port sit e. All ports were then removed. The fascia at the left lower quadrant closed using 0 Vicryl suture. Fascia at the umbilicus closed using #1 Ethibond suture. The skin was reapproximated using subcuti cular 4-0 Monocryl with Dermabond. The patient was transferred to recovery room in stable condition. Job ID: [id number]
[2022-09-18] MEDS: oxyCODONE HCL IR 5 MG TAB (IMMEDIATE RELEASE) PO PRN ×3 (00:46→12:23)
[2022-09-18] MEDS: DOCUSATE SODIUM/SENNA 50/8.6MG TAB PO SCH (07:48)
--- NOTE | 2022-09-21 14:08 | Discharge Summary ---
Date of Service September 18, 2022 Admission HPI Per Admitting Provider This is a 32y M with no significant PMH who presents to the [facility] ED on 09/17/22 with complaints of right lower abdominal pain. Patient states the pain started yesterday morning. It did get slightly better, but then returned this AM and has since gotten worse. He reports some dry-heaves, but no emesis. In the ER a CT a/p was obtained that revealed findings consistent with acute appendicitis, no perforation/abscess. He denies any fevers/chills or recent change in bowel habits. No prior abdominal surgical history. Principal Diagnosis acute appendicitis Discharge Exam awake/alert, no distress Gastrointestinal (Abdomen) Inspection/Auscultation: + abdominal surgical incision (c/d/i) Percussion/Palpation: abdomen soft Discharge Data Allergies Allergy/AdvReac Type Severity Reaction Status Date / Time No Known Allergies Allergy Verified 03/08/19 00:18 Consultations 09/17/22 16:29 ED Decision to Admit Stat Procedures Performed Operation Date: 09/17/22 15:45 Actual Procedures p Laparoscopic Appendectomy, Laparoscopic Umbilical Hernia Repair(Not Applicable) - Reji Markham MD, FACS Ordered Studies 09/17/22 12:41 CT abd pelvis IV con only Stat Hospital Course (1) Acute appendicitis: This is a 32yM who presented to the [facility] ED on 09/17/22 with abdominal pain. Workup in the ED showed a WBC of 10.[address] a/p concerning for acute appendicitis. The patient was tender to palpation in the RLQ. Patient made NPO with IVF and booked for the OR. On 09/17/22 the patient went to the OR with Dr. Markham for a laparoscopic appendectomy. The patient tolerated the procedure well, see operative report for full details. Post operatively the patient's diet was advanced, pain managed on prn meds, and incisions clean/dry/intact. On POD#1 the patient was deemed stable for discharge to home. Total Time Total Time Spent Total Time Spent (In Minutes): 10 Discharge Plan Discharge Items Patient Disposition: Home - Self-Care Reason For Visit: APPENDICITIS Discharge Diagnosis: Acute appendicitis and umbilical hernia Activity: As commented below Activity Comment: Light activity for 3 weeks Lifting: No more than 25 pounds Bathing Comment: May shower 09/18/2022 Sexual Activity: When tolerated Exercise Comment: Wait 3 weeks Driving/Machine Use: no driving while taking narcotics for pain Non-emergency contact: Surgeon Call non-emergency contact if: your pain is not controlled, your temperature is above 101 and your wound has increased drainage Follow-up/Referrals: Reji Markham MD, FACS [Physician] - 09/24/22 9:00 am Solitario Damon, DO [Primary Care Provider] - Diet: Regular Addtl Attending Provider Instructions: SPECIAL CARE INSTRUCTIONS: * Cover incisions and change daily for comfort/drainage. May leave uncovered with Dermabond * * Avoid constipation- * May Use Senokot S and Milk of Magnesium twice daily as directed on the package * May use ibuprofen for pain as tolerated. * Expect some swelling and bruising. Call your doctor if: * Temperature above 101 degrees * Pain not relieved by pain medicine ordered * There is increased drainage or redness from any incision * You have any unanswered questions or concerns [phone]. FOLLOW UP VISIT: If not already scheduled, please call the office for a follow-up visit. For 2 weeksno sutures to remove OFFICE PHONE NUMBER: Dr. Markham Office Pending Studies at Discharge: No Stand-Alone Forms: My [employer], Opioid Pain Management Medications and DC Order Prescriptions: New hydrocodone-acetaminophen 5-325 mg tablet 1 tab PO Q4H PRN (Reason: pain) Qty: 30 0RF Rx Instructions: For severe pain you may take 2 tablets but not more than 6 tablets in a single day Continued multivitamin Tablet 1 tab PO DAILY Discharge Orders: Discharge Order (Routine); Ordered 09/18/22 Ordered By: Reji Nielson/Other Patient Handouts: After an Appendectomy Admission Data Admit Date/Time: 09/17/22 18:25 Attending Provider: Reji Markham Admit Provider: Reji Markham Primary Care Provider: Solitario Damon Other Providers: Reji Markham Other Interventions: Discharge Summary Assessment (RN) Last Done: 09/18/22 10:14 Coding Level of Care Code D/C DAY MANAGEMENT <30 MINS Diagnoses Acute appendicitis K35.80
== END 2022-09-18 12:44 | disposition home or self-care (01) | DRG 343 ==
LOC: ED 12:16 → OR 17:02 → ED 17:02 → 3E 18:25